=== PATIENT | female | born 1950 | race Caucasian/White ===

== ENCOUNTER 2017-04-12 09:40 | Emergency (ER) | payer MEDICARE, OTHER ==
--- NOTE | ~2017-04-12 | CT4 ---
[facility] A Service of [facility] RADIOLOGY TEXT RESULTS PATIENT: CALLUM RAMOS LOCATION: SED : 48 UNIT #: [id number] AGE: [address]: Mayank Manzo MD SEX: F ORDER DR: [id number] [address] [address] [id number] E MR#: [id number] Acc #: [id number] NAME: CALLUM RAMOS : 1950 SEX: F STUDY DATE/TIME: 04/12/2017 11:40 UNIT: SED ROOM: STUDY DESCRIPTION: CT Abd and Pelv Wo Cont Attending Physician: Mayank Manzo M.D. Ordering Physician: Mayank Manzo M.D. MEDICAL IMAGING REPORT This report is preliminary unless electronic signature is present. EXAM CT abdomen and pelvis, noncontrast, kidney stone protocol, 04/12/2017 HISTORY 66-year-old female in the ED complaining of 3-day history of nausea, vomiting, diarrhea and diffuse abdominal pain. Fever. TECHNIQUE CT examination of the abdomen and pelvis was performed without oral or IV contrast using kidney stone protocol, as requested. This CT exam was performed with one or more of the following radiation dose reduction techniques: automatic exposure control, adjustment of mA and/or kV according to patient size, and iterative reconstruction. FINDINGS Abdomen findings: The left kidney is mildly enlarged and is surrounded by mild perinephric soft tissue stranding. However, there is no nephrolithiasis, and there is no evidence of upper urinary tract obstruction. The findings suggest potential upper urinary tract infection or inflammation. Correlate for clinical evidence of pyelonephritis. 4.1 cm left renal cyst. Kidneys, ureters and bladder are otherwise negative. Morphologic changes of hepatic cirrhosis. Portal venous hypertension with mild splenomegaly and recanalized periumbilical vein. Liver, pancreas and spleen otherwise negative without contrast. Nondistended gallbladder. No bile duct dilatation. Mild scattered diverticulosis within the sigmoid and lower descending colon. Small bowel and colon are otherwise normal in caliber and appearance, as imaged. The appendix is not seen. Normal-caliber abdominal aorta. STS[facility] A Service of [facility] RADIOLOGY TEXT RESULTS PATIENT: CALLUM RAMOS LOCATION: [facility] [place] : [birth year] UNIT #: [id number] AGE: [address]: Mayank Manzo MD SEX: F ORDER DR: Pelvis findings: Hysterectomy. Ovaries appear normal. Bladder and rectum are negative. Limited lung base images show no active disease in the lower chest. IMPRESSION 1. No visible nephrolithiasis or evidence of upper urinary tract obstruction. 2. The left kidney is mildly enlarged and is surrounded by mild soft tissue stranding in perinephric fat. Correlate for clinical and laboratory evidence of pyelonephritis. 3. Benign left renal cyst measuring 4.1 cm. 4. Morphologic evidence of hepatic cirrhosis. There is also evidence of portal venous hypertension with mild splenomegaly and recanalized periumbilical vein. No abdominal ascites. 5. Diverticulosis. 6. Hysterectomy. Dictated by... Allen Arreola M.D. THIS IS AN ELECTRONICALLY VERIFIED REPORT Allen Arreola M.D. at 04/12/2017 4:29 PM TABITHAW/delphine TD: 04/12/2017 15:26 JOB #: [id number] MEDICAL IMAGING REPORT Page 1 of 1
--- NOTE | ~2017-04-12 | CT71 ---
[facility] A Service of [facility] RADIOLOGY TEXT RESULTS PATIENT: CALLUM RAMOS LOCATION: SED : [birth year] UNIT #: [id number] AGE: [address]: Mayank Manzo MD SEX: F ORDER DR: [id number] [place] [id number] E MR#: [id number] Acc #: [id number] NAME: CALLUM RAMOS : 1950 SEX: F STUDY DATE/TIME: 04/12/2017 12:17 UNIT: SED ROOM: STUDY DESCRIPTION: CT Head Wo Contrast Attending Physician: Mayank Manzo M.D. Ordering Physician: Mayank Manzo M.D. MEDICAL IMAGING REPORT This report is preliminary unless electronic signature is present. EXAM CT brain without contrast media HISTORY Fever nausea vomiting and headache for 3 days. TECHNIQUE Axial imaging of the brain was performed without contrast media. This CT exam was performed with one or more of the following radiation dose reduction techniques: automatic control, adjustment of mA and/or kV according to patient size, and iterative reconstruction. FINDINGS There is generalized prominence of ventricles and CSF-containing spaces, the degree which is not unusual for a patient of this age. There is atherosclerotic disease in the dominant right vertebral and in both carotid siphons. No mass lesions, mass effect evidence of acute hemorrhage or edema. Frontal sinuses are hypoplastic. There is normal aeration of remaining sinuses and mastoid air cells. CONCLUSION 1. Age-appropriate atrophy. No acute intracranial findings. 2. Atherosclerotic disease in the right vertebral artery and both carotid siphons. Dictated by... Billy Russell M.D. THIS IS AN ELECTRONICALLY VERIFIED REPORT Billy Russell M.D. at 04/13/2017 7:09 AM NII/milan [facility] A Service of [facility] RADIOLOGY TEXT RESULTS PATIENT: CALLUM RAMOS LOCATION: SED : [birth year] UNIT #: [id number] AGE: [address]: Mayank Manzo MD SEX: F ORDER DR: TD: 04/12/2017 12:53 JOB #: [id number] MEDICAL IMAGING REPORT Page 1 of 1
[2017-04-12] MEDS ORDERED: LOPID600 MG PO (10:10)
[2017-04-12] MEDS ORDERED: METAGLIP PO (10:11)
[2017-04-12] MEDS ORDERED: ATENOLOL-CHLOR1 EACH PO (10:12)
[2017-04-12] MEDS ORDERED: CITALOPRAM HBR40 M1 PO (10:13)
[2017-04-12] MEDS ORDERED: BAYER ASPIRIN325 M1 PO (10:13)
[2017-04-12] MEDS ORDERED: SIMVASTATIN40 MG PO (10:14)
[2017-04-12 10:56] LABS: URINE SOURCE CLEAN CATCH
[2017-04-12 10:59] LABS: URINE APPEARANCE HAZY; URINE BILIRUBIN NEG (NEG); URINE BLOOD 2+ (NEG); URINE COLOR YELLOW; URINE GLUCOSE NEG (NORM); URINE KETONE TRACE (NEG); URINE LEUKOCYTE ESTERASE 1+ (NEG); URINE NITRATE POS (NEG); URINE PH 5.5 (5-8); URINE PROTEIN 2+ (NEG); URINE SPECIFIC GRAVITY >=1.030 (1.003-1.035)
[2017-04-12 11:05] LABS: MICRO INDICATED? YES
[2017-04-12 11:07] LABS: CULTURE INDICATED? YES; URINE BACTERIA 4+ (NEG); URINE GRANULAR CAST 0-2 /[HPF]; URINE HYALINE CAST 0-2 /[HPF]; URINE SQUAMOUS EPITHELIAL CELL FEW /[HPF]; URINE WBC INNUM /[HPF] (0-5)
[2017-04-12 11:07] LABS: HEMATOCRIT 38.3 % (35.0-45.0); HEMOGLOBIN 13.1 gm/dL (12.0-16.0); MEAN CELL VOLUME 85.4 FL (83-96); MEAN CORPUSCULAR HEMOGLOBIN 29.2 PG (28-34); MEAN CORPUSCULAR HGB CONC 34.2 g/dL (30-36); PLATELET COUNT 206 X10e3 (140-420); RED BLOOD COUNT 4.49 X10e (3.90-5.30); RED CELL DISTRIBUTION WIDTH 14.3 % (11.0-15.5)
[2017-04-12 11:08] LABS: BASOPHIL% 0.2 % (0-2.5); LYMPHOCYTE# 0.6 X10e3 (1.0-3.5); LYMPHOCYTE% 6.4 % (17.0-45.0); MONOCYTE# 0.8 X10e3 (0-1.0); MONOCYTE% 9.4 % (3.0-12.0); NEUTROPHIL# 7.6 X10e3 (1.5-7.1)
[2017-04-12 11:11] LABS: DIFF IND NO
[2017-04-12 11:20] LABS: ALBUMIN SERUM 3.6 g/dL (3.5-5.0); BILIRUBIN, DIRECT 0.3 mg/dL (0.0-0.2); BILIRUBIN,INDIRECT 0.7 mg/dL (0.0-0.9); BUN/CREATININE RATIO 14.66; CALCIUM SERUM 8.9 mg/dL (8.4-10.2); CREATININE SERUM 1.5 mg/dL (0.6-1.4); GLOM FILT RATE Estimated 35.7 mL/min (>60); PROTEIN TOTAL SERUM 8.1 g/dL (6.0-8.3)
[2017-04-12 11:29] LABS: POTASSIUM 3.1 mmol/L (3.5-5.1)
== END 2017-04-12 13:17 | disposition home or self-care (01) ==
LOC: SED 09:40
PROVIDERS: Emergency Medicine
DX: N39.0 Urinary tract infection, site not specified (principal); R19.7 Diarrhea, unspecified; F17.210 Nicotine dependence, cigarettes, uncomplicated; Z79.84 Long term (current) use of oral hypoglycemic drugs; Z79.82 Long term (current) use of aspirin; Z79.899 Other long term (current) drug therapy
CPT/HCPCS: 36415; 70450; 74176; 80048; 80076; 81003; 82150; 83690; 85025; 87086; 87088; 87186; 96361; 96374; 96375; 99284; J0696; J2405